=== PATIENT | male | born 1975 | race Caucasian/White ===

== ENCOUNTER 2017-02-05 09:05 | Emergency (ER) | payer MEDICAID ==
--- NOTE | 2017-02-05 09:12 | Emergency Department Record ---
History of Present Illness - General Chief Complaint: Chest Pain Stated Complaint: CHEST PAIN Time Seen by Provider: 02/05/17 09:06 Source: Patient Mode of Arrival: Ambulatory Limitations: No limitations - History of Present Illness Initial Comments: 41 yo male presents with chest pain that started at 5pm yesterday. The pain is mid to left chest. It does radiate to the left shoulder. The onset was at rest and sudden. The pain is sharp and aches. He laid down last night and the pain resolved but return upon waking this morning. No shortness of breath. No nausea. No vomiting. No radiation to the back. The pain is not exertion related. No history of CAD. No current PCP. Denies immediate family history of CAD. He is a smoker. He was told he had a murmur as a teenager. MD Complaint: Chest pain -: Hour(s) (15) Onset: During rest Pain Location: Left chest Pain Radiation: LUE Severity: Moderate Quality: Aching, Sharp Consistency: Constant, Intermittent Improves With: Nothing Worsens With: Nothing Treatments Prior to Arrival: None - Related Data Home Medications Medication Instructions Recorded Confirmed Last Taken Diazepam [Valium] 5 mg PO BID tab 10/14/15 02/05/17 Unknown Hydrocodone/Acetaminophen [[place] 1 tab PO Q6H tab 10/14/15 02/05/17 Unknown 10mg/325mg] Morphine Sulfate [Morphine Sulfate 15 mg PO Q12H tab 10/14/15 02/05/17 Unknown Er] Allergies Allergy/AdvReac Type Severity Reaction Status Date / Time diphenhydramine HCl Allergy Intermediate RASH Unverified 04/13/16 10:36 [From [facility]] Review of Systems Constitutional: Denies: Chills, Fever, Malaise, Weakness Eyes: Denies: Eye discharge, Eye pain, Photophobia ENT: Denies: Congestion, Throat pain Respiratory: Denies: Cough, Dyspnea, Hemoptysis, Stridor Cardiovascular: Reports: Chest pain. Denies: Dyspnea on exertion, Edema, Palpitations, Syncope Endocrine: Denies: Fatigue Gastrointestinal: Denies: Abdominal pain, Diarrhea, Nausea, Vomiting Genitourinary: Denies: Dysuria, Frequency, Hematuria Musculoskeletal: Denies: Arthralgia, Back pain, Joint swelling, Myalgia, Neck pain Skin: Denies: Bruising, Change in color, Rash Neurological: Denies: Headache, Numbness, Weakness Psychiatric: Denies: Anxiety Hematological/Lymphatic: Denies: Blood Clots, Easy bleeding, Easy bruising, Swollen glands Past Medical History - SOCIAL HISTORY Smoking Status: Current every day smoker - RESPIRATORY Hx Respiratory Disorders: No - CARDIOVASCULAR Hx Cardio Disorders: No - NEURO Hx Neuro Disorders: No - GI Hx GI Disorders: No - Hx Genitourinary Disorders: No - ENDOCRINE Hx Endocrine Disorders: No - MUSCULOSKELETAL Hx Musculoskeletal Disorders: Yes - PSYCH Hx Psych Problems: No - HEMATOLOGY/ONCOLOGY Hx Hematology/Oncology Disorders: No Family Medical History Family Hx Comment (NOT TO BE USED IN PLACE OF ITEMS BELOW): HTN Physical Exam - General General Appearance: Alert, Oriented x3, Cooperative, No acute distress Limitations: No limitations - Head Head exam: Normal inspection - Eye Eye exam: Normal appearance, PERRL. negative: Conjunctival injection, Periorbital swelling - ENT ENT exam: Normal exam, Mucous membranes moist Ear exam: Normal external inspection Nasal Exam: Normal inspection Mouth exam: Normal external inspection Teeth exam: Normal inspection Throat exam: Normal inspection - Neck Neck exam: Normal inspection, Full ROM. negative: Tenderness - Respiratory Respiratory exam: Normal lung sounds bilaterally. negative: Respiratory distress - Cardiovascular Cardiovascular Exam: Regular rate, Normal rhythm, Normal heart sounds Peripheral Pulses: 2+: Radial (R), Radial (L) - GI/Abdominal GI/Abdominal exam: Soft. negative: Tenderness - Rectal Rectal exam: Deferred - exam: Deferred - Extremities Extremities exam: Normal inspection, Full ROM, Normal capillary refill. negative: Tenderness - Back Back exam: Reports: Normal inspection, Full ROM. Denies: Muscle spasm, Rash noted, Tenderness - Neurological Neurological exam: Alert, Normal gait, Oriented X3 - Psychiatric Psychiatric exam: Normal affect, Normal mood - Skin Skin exam: Dry, Intact, Normal color, Warm Course - Reevaluation(s) Reevaluation #1: EKG 09:12 NSR, rate 68, intervals normal, [place] normal, ST slight early repol likely normal variant. 02/05/17 09:27 No acute changes on the CBC, CMP, D-Dimer, or Troponin. CXR was reviewed. Negative. No acute changes. 02/05/17 10:27 Reevaluation #2: The patient was informed regarding his labs Given the sudden onset sharp pain last night CTA of chest ordered as well. 02/05/17 10:41 Reevaluation #3: CTA reviewed. No acute PE or dissection. Emphysema changes. Left base granuloma. 02/05/17 11:41 Reevaluation #4: I SW Dr Mccollum regarding the chest pain, ekg, labs, CTA. The patient is pain free. Negative troponin after initial onset of pain yesterday. He recommends repeat troponin then if negative set up for treadmill stress test Sunday with office visit in the specialty clinic with him. The patient was informed and agrees with the plan. 02/05/17 12:07 02/05/17 13:44 Repeat troponin is negative DC home with cardiology follow up as scheduled with a stress test planned Medical Decision Making - Lab Data Result diagrams: 02/05/17 09:15 02/05/17 09:15 Disposition Disposition: Discharge Clinical Impression: Chest pain Disposition: Home, Self-Care Condition: (1) Good Instructions: Chest Pain (ED) Additional Instructions: Return immediately if you chest pain returns, short of breath, any new concerns Return Sunday to the [facility] for a stress test and an office consult with Dr Mccollum of Cardiology Take 325mg of Aspirin daily Referrals: LIZZY MCCOLLUM M.D. [MEDICAL DOCTOR] - Forms: Patient Portal Access Time of Disposition: 13:44 Quality - Quality Measures Quality Measures: N/A - Blood Pressure Screening View Details: Yes Blood Pressure Classification: Pre-Hypertensive BP Reading Systolic Measurement: 115 Diastolic Measurement: 81 Screening for High Blood Pressure: < Pre-Hypertensive BP, F/U Documented > [ G8950] Pre-Hypertensive Follow-up Interventions: Referral to alternative/primary care provider.
[2017-02-05 09:22] LABS: BASO % 0.2 % (0-6); EOS % 0.5 % (0-6); GRAN % 79.1 % (47-80); HEMATOCRIT 43.5 % (42.0-52.0); HEMOGLOBIN 15.3 gm/dl (14.0-18.0); LYMPH % 10.5 % (16-45); MEAN CELL VOLUME 87.5 fl (81-97); MEAN CORPUSCULAR HEMOGLOBIN 30.8 pg (27-33); MEAN CORPUSCULAR HGB CONC 35.2 g/dl (32-36); MEAN PLATELET VOLUME 8.9 fl (7.4-10.4); MONO % 9.7 % (0-9); PLATELET COUNT 201 K/uL (130-400); RED BLOOD COUNT 4.97 M/uL (4.40-5.70); RED CELL DISTRIBUTION WIDTH 12.7 % (11.5-14.5); WHITE BLOOD COUNT W/O DIFF 9.2 K/uL (4.2-12.2)
[2017-02-05] MEDS: ASPIRIN 81 MG CHEWABLE TABLET PO ONE (09:27)
[2017-02-05 09:33] LABS: ALB/GLOB RATIO 1.4 (1.1-1.8); ALBUMIN 4.3 gm/dL (3.5-5.0); ALKALINE PHOSPHATASE 55 U/L (38-126); ALT/SGPT 29 U/L (21-72); ANION GAP 8.4 (7-16); AST/SGOT 16 U/L (17-59); BILIRUBIN,TOTAL 0.74 mg/dL (0.2-1.3); BLOOD UREA NITROGEN 11 mg/dL (9-20); CARBON DIOXIDE 27.6 mmol/L (22-30); CREATINE PHOSPHOKINASE 120 U/L (55-170); CREATININE 0.8 mg/dL (0.66-1.25); EST GLOMERULAR FILTRATION RATE > 60 ml/min; GLUCOSE,RANDOM 111 mg/dL (70-110); TOTAL PROTEIN 7.3 gm/dL (6.3-8.2)
[2017-02-05 09:36] LABS: D-DIMER 0.29 mg/L FEU (0-0.59); INR 0.94; PARTIAL THROMBOPLASTIN TIME 25.9 SECONDS (24.5-39.1); PROTHROMBIN TIME (PATIENT) 10.1 SECONDS (9.5-12.1)
[2017-02-05 09:45] LABS: CKMB 0.4 ug/L (0-6); TROPONIN I < 0.012 ng/mL (0.00-0.034)
--- NOTE | 2017-02-06 15:53 | RADIOLOGY REPORT ---
EXAM: CHEST 2 VIEWS HISTORY: CHEST PAIN, HEART MURMUR. TECHNIQUE: PA and lateral views. COMPARISON: Two-view chest x-ray dated 11/15/94 that has been scanned into PACS. FINDINGS: Heart size is normal. Lungs appear expanded with no acute infiltrate seen. No pleural effusion or pneumothorax identified. IMPRESSION: CHEST APPEARS NEGATIVE. JOB NUMBER: [id number] MTDD
--- NOTE | 2017-02-06 16:22 | CT ANGIOGRAM REPORT ---
EXAM: CT ANGIOGRAM CHEST CTA w contrast HISTORY: CHEST PAIN, POSSIBLE PE. TECHNIQUE: CTA of the chest performed following the intravenous administration of 80 mL of Omnipaque-350 as the IV contrast. Post processed on an independent workstation was performed with coronal and sagittal 3D MIP series obtained. COMPARISON: No prior chest CT. Comparison is made to the two-view chest x-ray of 02/05/17. FINDINGS: No definite PE identified. No thoracic aortic aneurysm or dissection is seen. No pleural or pericardial effusion evident. There is a calcified granuloma in the left lower lobe posteromedially. Bullous disease in the lungs consistent with underlying emphysema. Some mild dependent atelectasis in the lung bases posteriorly. No pneumothorax evident. There are multiple hepatic cysts incidentally noted in the lower images, the largest located in the lateral segment of the left lobe measuring about 2.3 cm in diameter. IMPRESSION: 1. NO DEFINITE PE IDENTIFIED. 2. CALCIFIED GRANULOMA, LEFT LOWER LOBE POSTEROMEDIALLY. 3. BULLOUS DISEASE CONSISTENT WITH UNDERLYING EMPHYSEMA. 4. MULTIPLE HEPATIC CYSTS. JOB NUMBER: [id number] [facility]
== END 2017-02-05 13:54 | disposition home or self-care (01) ==
LOC: ER 09:05
DX: R07.89 Other chest pain (principal); M25.512 Pain in left shoulder; F17.210 Nicotine dependence, cigarettes, uncomplicated
CPT/HCPCS: 71020; 71275; 80053; 82550; 82553; 84484; 85025; 85379; 85610; 85730; 93005; 93010; 99284

== ENCOUNTER 2019-09-06 18:18 | Emergency (ER) | payer MEDICAID ==
--- NOTE | 2019-09-06 18:31 | Emergency Department Record ---
History of Present Illness - General Chief Complaint: Cough Stated Complaint: COUGH,SNEEZING,DIARRHEA Time Seen by Provider: 09/06/19 18:21 Source: Patient Mode of Arrival: Ambulatory Limitations: No limitations - History of Present Illness Initial Comments: 44 yo male presents to ED for evaluation of sneezing, sore throat, and fatigue that began yesterday. Patient denies fevers, chills, or cough symptoms. Patient does report nausea without vomiting and loose stools. Patient reports that his 6-month-old female was diagnosed with both influenza A and B, denies health problems at his baseline. Patient is concerned about possible influenza. MD Complaint: Cough, Nasal congestion Onset/Timin -: Hour(s) Severity: Moderate Consistency: Constant Improves With: Nothing Worsens With: Nothing Associated Symptoms: Diarrhea, Nausea Treatments Prior to Arrival: None - Related Data Home Medications Medication Instructions Recorded Confirmed Last Taken No Home Med [NO HOME MEDS] 09/06/19 09/06/19 Unknown Allergies Allergy/AdvReac Type Severity Reaction Status Date / Time diphenhydramine HCl Allergy Intermediate RASH Verified 09/06/19 18:28 [From [place]] Review of Systems Constitutional: Denies: Chills, Fever, Malaise, Night sweats Eyes: Denies: Eye discharge, Eye pain ENT: Reports: Congestion. Denies: Ear pain, Epistaxis Respiratory: Denies: Cough, Dyspnea Cardiovascular: Denies: Chest pain, Dyspnea on exertion Endocrine: Reports: Fatigue. Denies: Heat or cold intolerance Gastrointestinal: Reports: Diarrhea, Nausea. Denies: Abdominal pain, Constipation, Vomiting Genitourinary: Denies: Incontinence, Retention Musculoskeletal: Denies: Arthralgia, Back pain Skin: Denies: Bruising, Change in color Neurological: Denies: Abnormal gait, Confusion, Headache, Tingling, Tremors Psychiatric: Denies: Anxiety Hematological/Lymphatic: Denies: Anemia, Blood Clots Past Medical History - SOCIAL HISTORY Smoking Status: Current every day smoker - RESPIRATORY Hx Respiratory Disorders: No - CARDIOVASCULAR Hx Cardio Disorders: No - NEURO Hx Neuro Disorders: No - GI Hx GI Disorders: No - Hx Genitourinary Disorders: No - ENDOCRINE Hx Endocrine Disorders: No - MUSCULOSKELETAL Hx Musculoskeletal Disorders: Yes - PSYCH Hx Psych Problems: No - HEMATOLOGY/ONCOLOGY Hx Hematology/Oncology Disorders: No Family Medical History Family Hx Comment (NOT TO BE USED IN PLACE OF ITEMS BELOW): HTN Physical Exam - General General Appearance: Alert, Oriented x3, Cooperative, No acute distress Limitations: No limitations - Head Head exam: Atraumatic, Normocephalic, Normal inspection Head exam detail: negative: Abrasion, Contusion, Shearer's sign, General tenderness, Hematoma, Laceration - Eye Eye exam: Normal appearance. negative: Conjunctival injection, Periorbital swelling, Periorbital tenderness, Scleral icterus - ENT ENT exam: Normal orophraynx Ear exam: negative: Auricular hematoma, Auricular trauma Nasal Exam: negative: Active bleeding, Discharge, Dried blood, Foreign body, Sinus tenderness Mouth exam: negative: Drooling, Laceration, Muffled voice, Tongue elevation Teeth exam: Other (Adentulous on examination). negative: Dental caries, Dental tenderness #, Fractured tooth #, Gingival enlargement - Neck Neck exam: Normal inspection. negative: Meningismus, Tenderness - Respiratory Respiratory exam: Normal lung sounds bilaterally. negative: Respiratory distress, Rhonchi, Stridor, Wheezes - Cardiovascular Cardiovascular Exam: Regular rate, Normal rhythm, Normal heart sounds - GI/Abdominal GI/Abdominal exam: Soft. negative: Distended, Rebound, Rigid, Tenderness - Rectal Rectal exam: Deferred - exam: Deferred - Extremities Extremities exam: Normal inspection. negative: Pedal edema, Tenderness - Back Back exam: Denies: CVA tenderness (R), CVA tenderness (L) - Neurological Neurological exam: Alert, Normal gait, Oriented X3 - Psychiatric Psychiatric exam: Normal affect, Normal mood - Skin Skin exam: Normal color. negative: Abrasion Type of lesion: negative: abrasion Course - Reevaluation(s) Reevaluation #1: 09/06/19 18:56 Influenza: Negative Patient was updated on all results Symptoms are likely the result of a viral syndrome recommended symptomatic treatment as directed. Patient appears stable for discharge at this time. Disposition Disposition: Discharge Clinical Impression: Viral syndrome Disposition: Home, Self-Care Condition: (2) Stable Instructions: Viral Syndrome (ED) Additional Instructions: Return to ED if your symptoms worsen or if you have any concerns. Tylenol and Ibuprofen as needed. Follow-up with your family doctor in 3-5 days as directed. Forms: Patient Portal Access Time of Disposition: 18:57 Quality - Quality Measures Quality Measures: N/A - Blood Pressure Screening Does Patient Have Any of the Following: No Blood Pressure Classification: Pre-Hypertensive BP Reading Systolic Measurement: 120 Diastolic Measurement: 76 Screening for High Blood Pressure: < Pre-Hypertensive BP, F/U Documented > [G8950] Pre-Hypertensive Follow-up Interventions: Referral to alternative/primary care provider.
[2019-09-06 18:50] LABS: INFLUENZA A NEGATIVE (NEGATIVE); INFLUENZA B NEGATIVE (NEGATIVE)
== END 2019-09-06 19:07 | disposition home or self-care (01) ==
LOC: ER 18:18
DX: B34.9 Viral infection, unspecified (principal); R05 Cough; R19.7 Diarrhea, unspecified; F17.210 Nicotine dependence, cigarettes, uncomplicated
CPT/HCPCS: 87400; 99282